=== PATIENT | female | born 1990 ===

== ENCOUNTER → 2023-08-30 | Emergency (ER) | payer SELFPAY ==
--- NOTE | 2023-08-30 19:17 | ER ---
Nurse's Notes [facility] Name: Kiersten Tapia Age: 32 yrs Sex: Female : 1990 Arrival Date: 08/30/2023 Time: 18:39 Bed Waiting Private MD: Diagnosis: ED Course: 08/29 18:44 Patient arrived in ED. ra3 18:57 [facility] sb4 18:57 Augie Joseph MD is Attending Physician. sb4 18:58 Patient's name was called from ER [facility]. No response. km8 19:13 Patient's name was called from ER lobby. No response. Unable to locate patient. Will km8 disposition as left without being seen by a provider. Administered Medications: No medications were administered Outcome: 19:16 Patient left the ED. km8 Signatures: Nilda Donaldson PA-C PA-C sb4 Lexis Gay RN RN km8 Chante [place] ra3
== END ==
LOC: ER 18:39
DX: Z02.9 Encounter for administrative examinations, unspecified (principal)